=== PATIENT | male | born 1980 | race Caucasian/White ===

== ENCOUNTER 2020-01-15 08:41 | Emergency (ER) | payer OTHER ==
[2020-01-15] MEDS ORDERED: Sodium Chloride 0.9% 1,000 ML IV ONE (09:17)
[2020-01-15] MEDS ORDERED: Sodium Chloride 0.9% 10 ML Syringe FLUSH PRN (09:17)
[2020-01-15] MEDS ORDERED: Sodium Chloride 0.9% 2.5 ML Syringe FLUSH PRN ×2 (09:17)
--- NOTE | 2020-01-15 09:25 | EDM.PDOC ---
ED HPI GENERAL MEDICAL PROBLEM - General Chief Complaint: Abdominal Pain Stated Complaint: ABDOMINAL PAIN Time Seen by Provider: 01/15/20 08:48 - History of Present Illness INITIAL COMMENTS - FREE TEXT/NARRATIVE: History of present illness: [Patient presents with 2 days of left lower quadrant pain that is the lateral it is crampy in nature patient states he is never had this before no no nausea vomiting he is able to pass gas no diarrhea he has not had any genitourinary symptoms no fever movement seems to make it worse being still makes it better. Prior history of a left herniorrhaphy. Patient also has a history of chronic low potassium. ] Review of systems: As per history of present illness and below otherwise all systems reviewed and negative. Past medical history: As per history of present illness and as reviewed below otherwise noncontributory. Surgical history: As per history of present illness and as reviewed below otherwise noncontributory. Social history: No reported history of drug or alcohol abuse. Family history: As per history of present illness and as reviewed below otherwise noncontributory. Physical exam: HEENT: Atraumatic, normocephalic, pupils reactive, negative for conjunctival pallor or scleral icterus, mucous membranes moist, throat clear, neck supple, nontender, trachea midline. Lungs: Clear to auscultation, breath sounds equal bilaterally, chest nontender. Heart: S1S2, regular, negative for clicks, rubs, or JVD. Abdomen: Soft, nondistended, tenderness in the lateral aspect of the left lower quadrant. Negative for masses or hepatosplenomegaly. Negative for costovertebral tenderness. There is no tenderness at McBurney's point and no rebound Pelvis: Stable nontender. Genitourinary: Deferred. Rectal: Deferred. Extremities: Atraumatic, negative for cords or calf pain. Neurovascular unremarkable. Neuro: Awake, alert, oriented. Cranial nerves II through XII unremarkable. Cerebellum unremarkable. Motor and sensory unremarkable throughout. Exam nonfocal. Diagnostics: [] Therapeutics: [] Impression: Abdominal pain Plan: [] Definitive disposition and diagnosis as appropriate pending reevaluation and review of above. LLQ Pain Score (Numeric/FACES): 5 - Related Data Allergies Allergy/AdvReac Type Severity Reaction Status Date / Time amoxicillin Allergy Other Verified 01/15/20 08:53 cefaclor [From Ceclor] Allergy Other Verified 01/15/20 08:53 Penicillins Allergy Other Verified 01/15/20 08:53 Home Meds: Home Meds Naproxen [EC-Naproxen] 500 mg PO Q12HR #20 tablet. 01/15/20 [Rx] Potassium Chloride [Klor-Con] 60 mg PO TID 01/15/20 [History] aMILoride [Midamor] 40 mg PO DAILY 01/15/20 [History] Past Medical History HEENT History: Reports: None Cardiovascular History: Reports: Other (See Below) Other Cardiovascular History: thickened heart burroughs Respiratory History: Reports: None Gastrointestinal History: Reports: None Genitourinary History: Reports: None Musculoskeletal History: Reports: None Neurological History: Reports: None Psychiatric History: Reports: None Endocrine/Metabolic History: Reports: None Hematologic History: Reports: Other (See Below) Other Hematologic History: Bartter's syndrome Immunologic History: Reports: None Oncologic (Cancer) History: Reports: None Dermatologic History: Reports: None - Infectious Disease History Infectious Disease History: Reports: None - Past Surgical History Head Surgeries/Procedures: Reports: None HEENT Surgical History: Reports: None Cardiovascular Surgical History: Reports: None Respiratory Surgical History: Reports: None GI Surgical History: Reports: None Male Surgical History: Reports: None Endocrine Surgical History: Reports: None Neurological Surgical History: Reports: None Musculoskeletal Surgical History: Reports: None Oncologic Surgical History: Reports: None Dermatological Surgical History: Reports: None Social & Family History - Family History Family Medical History: Noncontributory - Tobacco Use Smoking Status *Q: Never Smoker Second Hand Smoke Exposure: No - Caffeine Use Caffeine Use: Reports: None - Alcohol Use Days Per Week of Alcohol Use: 7 Number of Drinks Per Day: 3 Total Drinks Per Week: 21 - Recreational Drug Use Recreational Drug Use: No ED ROS GENERAL - Review of Systems Review Of Systems: See Below ED EXAM, GENERAL - Physical Exam Exam: See Below Course - Vital Signs Text/Narrative:: At 11:40 AM the patient was rechecked he is feeling approximately the same does not want pain medicine. CT was read by radiology as epiploic appendagitis no other acute findings. I will start the patient on naproxen follow-up with primary care return to the ED for worsening symptoms or other concerns. Last Recorded V/S: Last Vital Signs Temp 35.6 C L 01/15/20 08:55 Pulse 77 01/15/20 08:55 Resp 18 01/15/20 08:55 BP 128/89 01/15/20 08:55 Pulse Ox 99 01/15/20 08:55 - Orders/Labs/Meds Orders: Active Orders 24 hr Category Date Time Status Sodium Chloride 0.9% [Saline Flush] Med 01/15/20 09:17 Active 10 ml FLUSH ASDIRECTED PRN Sodium Chloride 0.9% [Saline Flush] Med 01/15/20 09:17 Active 2.5 ml FLUSH ASDIRECTED PRN Sodium Chloride 0.9% [Saline Flush] Med 01/15/20 09:17 Active 2.5 ml FLUSH ASDIRECTED PRN Saline Lock Insert [OM.PC] Stat Oth 01/15/20 09:17 Ordered Medication Orders Sodium Chloride (Saline Flush) 2.5 ml FLUSH ASDIRECTED PRN PRN Reason: Keep Vein Open Sodium Chloride (Saline Flush) 2.5 ml FLUSH ASDIRECTED PRN PRN Reason: Keep Vein Open Sodium Chloride (Saline Flush) 10 ml FLUSH ASDIRECTED PRN PRN Reason: Keep Vein Open Labs: Laboratory Tests 01/15/20 01/15/20 Range/Units 09:14 09:14 WBC 11.23 H (4.0-11.0) K/uL RBC 5.59 (4.50-5.90) M/uL Hgb 18.0 H (13.0-17.0) g/dL Hct 49.1 (38.0-50.0) % MCV 87.8 (80.0-98.0) fL MCH 32.2 H (27.0-32.0) pg MCHC 36.7 (31.0-37.0) g/dL RDW Std Deviation 38.7 (28.0-62.0) fl RDW Coeff of Benson 12 (11.0-15.0) % Plt Count 344 (150-400) K/uL MPV 10.70 (7.40-12.00) fL Neut % (Auto) 72.6 (48.0-80.0) % Lymph % (Auto) 17.8 (16.0-40.0) % [place] % (Auto) 7.9 (0.0-15.0) % Eos % (Auto) 1.3 (0.0-7.0) % Baso % (Auto) 0.4 (0.0-1.5) % Neut # (Auto) 8.2 H (1.4-5.7) K/uL Lymph # (Auto) 2.0 (0.6-2.4) K/uL [place] # (Auto) 0.9 H (0.0-0.8) K/uL Eos # (Auto) 0.2 (0.0-0.7) K/uL Baso # (Auto) 0.0 (0.0-0.1) K/uL Nucleated RBC % 0.0 /100WBC Nucleated RBCs # 0 K/uL Sodium 137 (136-148) mmol/L Potassium 1.7 L* (3.5-5.1) mmol/L Chloride 95 L (98-107) mmol/L Carbon Dioxide 27.5 (21.0-32.0) mmol/L BUN 12 (7.0-18.0) mg/dL Creatinine 1.2 (0.8-1.3) mg/dL Est Cr Clr Drug Dosing 80.75 mL/min Estimated GFR (MDRD) > 60.0 ml/min Glucose 124 H (74-106) mg/dL Calcium 9.1 (8.5-10.1) mg/dL Total Bilirubin 1.1 H (0.2-1.0) mg/dL AST 33 (15-37) IU/L ALT 54 (14-63) IU/L Alkaline Phosphatase 76 (46-116) U/L Total Protein 7.9 (6.4-8.2) g/dL Albumin 4.2 (3.4-5.0) g/dL Globulin 3.7 (2.6-4.0) g/dL Albumin/Globulin Ratio 1.1 (0.9-1.6) Lipase 68 L (73-393) U/L Meds: Medications Generic Name Dose Route Start Last Admin Trade Name Freq PRN Reason Stop Dose Admin Sodium Chloride 2.5 ml 01/15/20 09:17 Saline Flush FLUSH ASDIRECTED PRN Keep Vein Open Sodium Chloride 2.5 ml 01/15/20 09:17 Saline Flush FLUSH ASDIRECTED PRN Keep Vein Open Sodium Chloride 10 ml 01/15/20 09:17 Saline Flush FLUSH ASDIRECTED PRN Keep Vein Open Discontinued Medications Generic Name Dose Route Start Last Admin Trade Name Faustina PRN Reason Stop Dose Admin Sodium Chloride 1,000 mls @ 999 mls/hr 01/15/20 09:17 01/15/20 09:31 Normal Saline IV 01/15/20 10:17 999 mls/hr BOLUS ONE Administration Iopamidol 100 ml 01/15/20 10:38 01/15/20 10:39 Isovue Multipack-370 (76%) IVPUSH 01/15/20 10:39 100 ml ONETIME STA Administration Departure - Departure Time of Disposition: 11:41 Disposition: Home, Self-Care 01 Condition: Good Clinical Impression: Epiploic appendagitis Abdominal pain Qualifiers: Abdominal location: left lower quadrant Qualified Code(s): R10.32 - Left lower quadrant pain - Discharge Information *PRESCRIPTION DRUG MONITORING PROGRAM REVIEWED*: Not Applicable *COPY OF PRESCRIPTION DRUG MONITORING REPORT IN PATIENT LA: Not Applicable Instructions: Abdominal Pain, Adult, [id number] Referrals: PCP,None [Primary Care Provider] - Forms: ED Department Discharge Additional Instructions: The following information is given to patients seen in the emergency department who are being discharged to home. This information is to outline your options for follow-up care. We provide all patients seen in our emergency department with a follow-up referral. The need for follow-up, as well as the timing and circumstances, are variable depending upon the specifics of your emergency department visit. If you don't have a primary care physician on staff, we will provide you with a referral. We always advise you to contact your personal physician following an emergency department visit to inform them of the circumstance of the visit and for follow-up with them and/or the need for any referrals to a consulting specialist. The emergency department will also refer you to a specialist when appropriate. This referral assures that you have the opportunity for follow-up care with a specialist. All of these measure are taken in an effort to provide you with optimal care, which includes your follow-up. Under all circumstances we always encourage you to contact your private physician who remains a resource for coordinating your care. When calling for follow-up care, please make the office aware that this follow-up is from your recent emergency room visit. If for any reason you are refused follow-up, please contact the [facility] Emergency Department at and asked to speak to the emergency department charge nurse. [facility] - Primary Care [address] [place] [address] [facility] [address] [place] [id number] Sepsis Event Note (ED) - Evaluation Sepsis Screening Result: No Definite Risk - Focused Exam Vital Signs: Vital Signs Temp Pulse Resp BP Pulse Ox 01/15/20 08:55 35.6 C L 77 18 128/89 99 - My Orders Last 24 Hours: My Active Orders 01/15/20 09:17 Sodium Chloride 0.9% [Saline Flush] 10 ml FLUSH ASDIRECTED PRN Sodium Chloride 0.9% [Saline Flush] 2.5 ml FLUSH ASDIRECTED PRN Sodium Chloride 0.9% [Saline Flush] 2.5 ml FLUSH ASDIRECTED PRN Saline Lock Insert [OM.PC] Stat - Assessment/Plan Last 24 Hours: My Active Orders 01/15/20 09:17 Sodium Chloride 0.9% [Saline Flush] 10 ml FLUSH ASDIRECTED PRN Sodium Chloride 0.9% [Saline Flush] 2.5 ml FLUSH ASDIRECTED PRN Sodium Chloride 0.9% [Saline Flush] 2.5 ml FLUSH ASDIRECTED PRN Saline Lock Insert [OM.PC] Stat
[2020-01-15 10:14] LABS: BLOOD UREA NITROGEN,BUN 12 mg/dL (7.0-18.0); CARBON DIOXIDE,CO2 27.5 mmol/L (21.0-32.0); CHLORIDE,CL 95 mmol/L (98-107); GLUCOSE RANDOM 124 mg/dL (74-106); LIPASE 68 U/L (73-393); SODIUM,NA 137 mmol/L (136-148)
[2020-01-15 10:16] LABS: POTASSIUM,K 1.7 mmol/L (3.5-5.1)
[2020-01-15] MEDS ORDERED: Iopamidol 755 MG/ML 500 ML Multipack Bottle IVPUSH STA (10:38)
--- NOTE | 2020-01-15 11:28 | CT ---
CT abdomen and pelvis Technique: Multiple axial sections were obtained from above the dome of the diaphragm inferiorly to the pubic symphysis. Intravenous contrast was utilized. No oral contrast has been given. Findings: Visualized lung bases show nothing acute. Liver contains no focal parenchymal abnormality. Spleen appears within normal limits. Adrenal glands show no nodule. Pancreas shows no discrete abnormality. Gallbladder contains no calcified gallstones. Kidneys show symmetric contrast enhancement. No hydronephrosis or discrete mass is seen. Aorta shows no aneurysm. Appendix is seen which is normal. No pelvic mass or adenopathy is seen. Mild inflammatory change is seen off the descending colon close to the descending and sigmoid junction. Findings are felt compatible with so-called epiploic appendagitis. No other inflammatory change is seen. No free fluid is noted. Bone window settings were reviewed. No acute osseous finding is appreciated. Small fat-containing umbilical hernia is noted. Impression: 1. Mild inflammatory change of the descending colon as described above. Findings are felt compatible with epiploic appendagitis. 2. Other findings as noted above which are felt to be incidental. Diagnostic code #3 This report was dictated in MDT
== END 2020-01-15 12:02 | disposition home or self-care (01) ==
LOC: MW.ED 08:41
DX: R10.32 Left lower quadrant pain (principal); Z88.1 Allergy status to other antibiotic agents; Z88.0 Allergy status to penicillin; Z79.899 Other long term (current) drug therapy
CPT/HCPCS: 36415; 74177; 80053; 83690; 85025; 99284; J7030; Q9967

== ENCOUNTER 2021-05-10 17:41 | Observation (INO) | payer OTHER ==
--- NOTE | 2021-05-10 18:01 | EDM.PDOC ---
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 Patient states that he is here for work. He typically receives his care in [place]. He notes that he is supposed to be on oral potassium daily but is admittedly noncompliant with it. He states he can feel when his potassium is getting low because of lower extremity muscle weakness and typically has prescription potassium but did not have any. He did try to get it called in but was told that he needed to come to the hospital for evaluation. Over the last few days he noted worsening lower extremity weakness to the point that he is having difficulty ambulating. He states that when this happens his potassium is typically in the 1-2 range and to "not freak out". He denies any chest pain or shortness of breath. legs Pain Score (Numeric/FACES): 6 - Related Data Allergies Allergy/AdvReac Type Severity Reaction Status Date / Time amoxicillin Allergy Other Verified 05/10/21 17:48 cefaclor [From Ceclor] Allergy Other Verified 05/10/21 17:48 Penicillins Allergy Other Verified 05/10/21 17:48 Home Meds: Home Meds Naproxen [EC-Naproxen] 500 mg PO Q12HR #20 tablet. 01/15/20 [Rx] Potassium Chloride [Klor-Con] 60 mg PO TID 01/15/20 [History] aMILoride [Midamor] 40 mg PO DAILY 01/15/20 [History] Magnesium Oxide [Mag-Oxide Magnesium] 600 mg PO DAILY #90 tablet 05/10/21 [Rx] Potassium Chloride 60 meq PO TID #270 tablet.er 05/10/21 [Rx] aMILoride HCl [Amiloride HCl] 40 mg PO ONETIME #240 tablet 05/10/21 [Rx] Past Medical History HEENT History: Reports: None Cardiovascular History: Reports: Other (See Below) Other Cardiovascular History: thickened heart burroughs Respiratory History: Reports: None Gastrointestinal History: Reports: None Genitourinary History: Reports: None Musculoskeletal History: Reports: None Neurological History: Reports: None Psychiatric History: Reports: None Endocrine/Metabolic History: Reports: None Hematologic History: Reports: Other (See Below) Other Hematologic History: Bartter's syndrome Immunologic History: Reports: None Oncologic (Cancer) History: Reports: None Dermatologic History: Reports: None - Infectious Disease History Infectious Disease History: Reports: None - Past Surgical History Head Surgeries/Procedures: Reports: None HEENT Surgical History: Reports: None Cardiovascular Surgical History: Reports: None Respiratory Surgical History: Reports: None GI Surgical History: Reports: None Male Surgical History: Reports: None Endocrine Surgical History: Reports: None Neurological Surgical History: Reports: None Musculoskeletal Surgical History: Reports: None Oncologic Surgical History: Reports: None Dermatological Surgical History: Reports: None Social & Family History - Family History Family Medical History: No Pertinent Family History - Caffeine Use Caffeine Use: Reports: None - Recreational Drug Use Recreational Drug Use: No ED ROS GENERAL - Review of Systems Review Of Systems: Comprehensive ROS is negative, except as noted in HPI. ED EXAM, GENERAL - Physical Exam Exam: See Below Exam Limited By: No Limitations General Appearance: Alert, WD/WN, No Apparent Distress Ears: Hearing Grossly Normal Throat/Mouth: Normal Voice, No Airway Compromise Head: Atraumatic, Normocephalic Respiratory/Chest: No Respiratory Distress, Lungs Clear, Normal Breath Sounds, No Accessory Muscle Use Cardiovascular: Normal Peripheral Pulses, Regular Rate, Rhythm Extremities: Normal Inspection, Other (symmetric LE muscle weakness) Neurological: Alert, Normal Cognition Psychiatric: Normal Affect, Normal Mood Skin Exam: Warm, Dry, Intact, Normal Color #1 Interpretation EKG Date: 05/10/21 Time: 17:47 Rhythm: NSR Rate (Beats/Min): 94 [place]: Normal P-Wave: Present QRS: Normal ST-T: Normal QT: Normal UT/PQ Interval: 397 EKG Interpretation Comments: non-ischemic Course - Re-Assessments/Exams Free Text/Narrative Re-Assessment/Exam: 05/10/21 18:56 Potassium is low at 1.9. Magnesium is also low at 1.3. 40 mEq potassium IV ordered. 40mEq PO. 2 g magnesium ordered. 05/10/21 19:18 Patient care transitioned to Dr. Johnson pending reassessment after medications. I did speak with patient about potential admission for hypokalemia but he declines. I did provide him with outpatient Rx for his medications as prescribed by his respiratory therapy assistant in [place]. 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 Patient has been noncompliant with his potassium. Patient reports that he is from [place] and his doctor would not call in prescription for potassium secondary to symptoms and told to come to the ER for evaluation. Here in the ER his potassium level is 1.9 and his magnesium level is 1.6. Patient was given 2 g of mag sulfate followed by 40 mEq of potassium p.o., 40 equivalents of IV potassium chloride, and ultimately followed by an additional 40 mg of potassium p.o. Patient was reevaluated after receiving 120 mill equivalents of potassium and is still feeling too weak to walk. Patient reports he has no weakness in his upper extremities however his lower extremities are extremely weak and he was unable to stand without assistance. I have discussed the case with Dr. Leonard who agrees with the plan to admit for continued supplementation of magnesium and potassium until his strength is back. Reassessment at the time of disposition demonstrates that the patient is in no acute distress. The patient has remained stable throughout the entire ED visit and is without objective evidence for acute process requiring urgent intervention or hospitalization. The patient is stable for discharge, counseling is provided as documented above, discussed symptomatic treatment and specific conditions for return. I have spoken with the patient/caregiver and discussed todays findings, in addition to providing specific details for the plan of care. Questions are answered and there is agreement with the plan. ED ROS GENERAL - Review of Systems Review Of Systems: See Below ED EXAM, GENERAL - Physical Exam Exam: See Below Course - Vital Signs Last Recorded V/S: Last Vital Signs Temp 97.2 F 05/10/21 17:45 Pulse 98 05/10/21 17:45 Resp 16 05/10/21 19:51 BP 145/86 H 05/10/21 17:45 Pulse Ox 98 05/10/21 19:51 - Orders/Labs/Meds Orders: Active Orders 24 hr Category Date Time Status CORONAVIRUS COVID-19 STEVE [MOLEC] Stat Lab 05/11/21 00:39 Ordered POTASSIUM,K [CHEM] Stat Lab 05/11/21 00:40 Received Magnesium Sulfate/Water [Magnesium Sulfate in Water 2 Med 05/11/21 00:45 Ordered GM/50 ML] 2 gm Premix Bag 1 bag IV ONETIME Sodium Chloride 0.9% [Normal Saline] 1,000 ml Med 05/10/21 19:15 Active IV ASDIRECTED Saline Lock Insert [OM.PC] Stat Oth 05/10/21 17:57 Ordered Medication Orders Sodium Chloride (Normal Saline) 1,000 mls @ 125 mls/hr IV ASDIRECTED [facility] Last Admin: 05/10/21 19:20 Dose: 125 mls/hr Documented by: DEBORA Magnesium Sulfate 2 gm/ Premix 50 mls @ 12.5 mls/hr IV ONETIME ONE Stop: 05/11/21 04:44 Labs: Laboratory Tests 05/10/21 05/10/21 Range/Units 18:06 18:06 WBC 15.48 H (4.0-11.0) K/uL RBC 4.96 (4.50-5.90) M/uL Hgb 15.6 (13.0-17.0) g/dL Hct 41.2 (38.0-50.0) % MCV 83.1 (80.0-98.0) fL MCH 31.5 (27.0-32.0) pg MCHC 37.9 H (31.0-37.0) g/dL RDW Std Deviation 39.7 (28.0-62.0) fl RDW Coeff of Benson 13 (11.0-15.0) % Plt Count 423 H (150-400) K/uL MPV 10.70 (7.40-12.00) fL Neut % (Auto) 75.1 (48.0-80.0) % Lymph % (Auto) 14.1 L (16.0-40.0) % [place] % (Auto) 8.5 (0.0-15.0) % Eos % (Auto) 2.1 (0.0-7.0) % Baso % (Auto) 0.2 (0.0-1.5) % Neut # (Auto) 11.6 H (1.4-5.7) K/uL Lymph # (Auto) 2.2 (0.6-2.4) K/uL [place] # (Auto) 1.3 H (0.0-0.8) K/uL Eos # (Auto) 0.3 (0.0-0.7) K/uL Baso # (Auto) 0.0 (0.0-0.1) K/uL Nucleated RBC % 0.0 /100WBC Nucleated RBCs # 0 K/uL Sodium 139 (136-148) mmol/L Potassium 1.9 L* (3.5-5.1) mmol/L Chloride 99 (98-107) mmol/L Carbon Dioxide 21.6 (21.0-32.0) mmol/L BUN 16 (7.0-18.0) mg/dL Creatinine 1.1 (0.8-1.3) mg/dL Est Cr Clr Drug Dosing 86.36 mL/min Estimated GFR (MDRD) > 60.0 ml/min Glucose 107 H (74-106) mg/dL Calcium 8.0 L (8.5-10.1) mg/dL Magnesium 1.3 L (1.8-2.4) mg/dL Total Bilirubin 1.0 (0.2-1.0) mg/dL AST 27 (15-37) IU/L ALT 31 (14-63) IU/L Alkaline Phosphatase 67 (46-116) U/L Total Protein 6.9 (6.4-8.2) g/dL Albumin 3.6 (3.4-5.0) g/dL Globulin 3.3 (2.6-4.0) g/dL Albumin/Globulin Ratio 1.1 (0.9-1.6) Meds: Medications Generic Name Dose Route Start Last Admin Trade Name Freq PRN Reason Stop Dose Admin Sodium Chloride 1,000 mls @ 125 mls/hr 05/10/21 19:15 05/10/21 19:20 Normal Saline IV 125 mls/hr ASDIRECTED MATTHEW Administration Magnesium Sulfate 2 gm/ Premix 50 mls @ 12.5 mls/hr 05/11/21 00:45 IV 05/11/21 04:44 ONETIME ONE Discontinued Medications Generic Name Dose Route Start Last Admin Trade Name Freq PRN Reason Stop Dose Admin Potassium Chloride 20 meq/ 50 mls @ 25 mls/hr 05/10/21 18:08 05/10/21 19:00 Premix IV 05/10/21 20:07 Not Given ONETIME ONE Potassium Chloride 40 meq/ 100 mls @ 25 mls/hr 05/10/21 18:56 05/10/21 19:30 Premix IV 05/10/21 22:55 25 mls/hr ONETIME ONE Administration Magnesium Sulfate 2 gm/ Premix 50 mls @ 50 mls/hr 05/10/21 18:56 05/10/21 19:15 IV 05/10/21 19:55 50 mls/hr ONETIME ONE Administration Potassium Chloride 40 meq 05/10/21 19:00 05/10/21 19:14 Potassium Chloride 10% 20 Meq/15 Ml Soln 30 Ml Ud Cup PO 05/10/21 19:01 40 meq ONETIME ONE Administration Potassium Chloride 40 meq 05/10/21 22:45 05/10/21 23:08 Potassium Chloride 20 Meq Tab.Er PO 05/10/21 22:46 40 meq ONETIME ONE Administration Spironolactone 50 mg 05/10/21 19:17 05/10/21 19:29 Spironolactone 25 Mg Tab PO 05/10/21 19:18 50 mg ONETIME ONE Administration Departure - Departure Time of Disposition: 00:49 Condition: Good Sepsis Event Note (ED) - Focused Exam Vital Signs: Vital Signs Temp Pulse Resp BP Pulse Ox 05/10/21 19:51 16 98 05/10/21 17:45 97.2 F 98 18 145/86 H 98 - My Orders Last 24 Hours: My Active Orders 05/11/21 00:39 CORONAVIRUS COVID-19 STEVE [MOLEC] Stat 05/11/21 00:40 POTASSIUM,K [CHEM] Stat 05/11/21 00:45 Magnesium Sulfate/Water [Magnesium Sulfate in Water 2 GM/50 ML] 2 gm Premix Bag 1 bag IV ONETIME - Assessment/Plan Last 24 Hours: My Active Orders 05/11/21 00:39 CORONAVIRUS COVID-19 STEVE [MOLEC] Stat 05/11/21 00:40 POTASSIUM,K [CHEM] Stat 05/11/21 00:45 Magnesium Sulfate/Water [Magnesium Sulfate in Water 2 GM/50 ML] 2 gm Premix Bag 1 bag IV ONETIME
[2021-05-10] MEDS ORDERED: Potassium Chloride Riders 20 MEQ in Premix Bag 1 BAG IV ONE (18:08)
[2021-05-10 18:44] LABS: BLOOD UREA NITROGEN,BUN 16 mg/dL (7.0-18.0); CARBON DIOXIDE,CO2 21.6 mmol/L (21.0-32.0); CHLORIDE,CL 99 mmol/L (98-107); GLUCOSE RANDOM 107 mg/dL (74-106); SODIUM,NA 139 mmol/L (136-148)
[2021-05-10 18:56] LABS: POTASSIUM,K 1.9 mmol/L (3.5-5.1)
[2021-05-10] MEDS ORDERED: Magnesium Sulfate/Water 2 GM in Premix Bag 1 BAG IV ONE (18:56)
[2021-05-10] MEDS ORDERED: Potassium Chloride Riders 40 MEQ in Premix Bag 1 BAG IV ONE (18:56)
[2021-05-10] MEDS ORDERED: Potassium Chloride 10% 20 MEQ/15 ML Soln 30 ML UD Cup PO ONE (19:00)
[2021-05-10] MEDS ORDERED: Spironolactone 25 MG Tab PO ONE (19:17)
[2021-05-10] MEDS: Sodium Chloride 0.9% 1,000 ML IV SCH (19:20)
[2021-05-10] MEDS ORDERED: Potassium Chloride 20 MEQ Tab.ER PO ONE (22:45)
[2021-05-11] MEDS ORDERED: Magnesium Sulfate/Water 2 GM in Premix Bag 1 BAG IV ONE ×2 (00:45→07:00)
[2021-05-11] MEDS ORDERED: Albuterol/Ipratropium 3.0-0.5 MG/3 ML Neb Soln NEB PRN (03:08)
[2021-05-11] MEDS ORDERED: Ondansetron 4 MG/2 ML SDV IVPUSH PRN (03:09)
[2021-05-11] MEDS ORDERED: Potassium Chloride 20 MEQ Tab.ER PO ONE ×2 (03:18→08:31)
[2021-05-11] MEDS ORDERED: Potassium Chloride Riders 40 MEQ in Premix Bag 1 BAG IV ONE ×4 (03:50→18:44)
[2021-05-11 06:28] LABS: BLOOD UREA NITROGEN,BUN 14 mg/dL (7.0-18.0); CARBON DIOXIDE,CO2 26.1 mmol/L (21.0-32.0); CHLORIDE,CL 100 mmol/L (98-107); GLUCOSE RANDOM 113 mg/dL (74-106); SODIUM,NA 140 mmol/L (136-148)
[2021-05-11 06:31] LABS: POTASSIUM,K 1.8 mmol/L (3.5-5.1)
--- NOTE | 2021-05-11 08:14 | PCM.HP.2 ---
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 Patient condition is managed and followed in [place] by his provider. Patient was diagnosed in his mid to late 20s. Patient has been in [place] since January. Patient's medications include potassium chloride 60 mEq TID and amiloride 40 mg daily. Patient has been noncompliant with his medications for the last 1 year. Patient has had episodes of hyperkalemia in the past states he begins to experience muscle weakness in his legs which he has had for the past few days. He did call his provider for prescription but was told to ER for evaluation. Patient states his lower extremity weakness has worsened over the past few days making it difficult to ambulate. Patient understands that the symptoms start when his potassium becomes between 1-2. Patient denies chest pain, palpitations, irregular heartbeat, shortness of breath, dyspnea on exertion, headaches, dizziness, loss of consciousness. Patient had COVID last month, did not require hospitalization. Patient is not vaccinated for Covid. ED course: Patient had lower extremity muscle weakness bilaterally. Potassium 1.9. Magnesium 1.3. Patient received potassium chloride 40 mEq IV. Potassium chloride 40 mEq p.o. 2 g of magnesium. This was followed by another 40 mEq IV potassium. Patient continued to feel weak and had difficulty with ambulation. Temperature 97.2. Pulse 98. RR 16. BP 145/86. 98% on room air. WBC 15.48. Hgb 15.6. Platelet 423. Sodium 139. Potassium 1.9. Chloride 99. Bicarb 21.6. BUN 16. Creatinine 1.1. Glucose 107. Calcium 8.0. Magnesium 1.3. AST 27. ALT 31. Alk phos 67. EKG: Normal sinus rhythm. Normal axis. No STT abnormalities. 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 Medications: Potassium chloride 60 mEq TID. Amiloride 40 mg daily. Allergies: Amoxicillin, penicillin, cefaclor. Social history: Patient chews 1 tin of tobacco daily. Denies smoking. Patient states he has not had alcohol for the last 1.5 months. Denies illicit drug use. Patient is and has 2 children who live at home in [place]. CODE STATUS: Full code. legs Pain Score (Numeric/FACES): 6 - Related Data Allergies/Adverse Reactions: Allergies Allergy/AdvReac Type Severity Reaction Status Date / Time amoxicillin Allergy Other Verified 05/11/21 02:23 cefaclor [From Ceclor] Allergy Other Verified 05/11/21 02:23 Penicillins Allergy Other Verified 05/11/21 02:23 Home Medications: Home Meds Naproxen [EC-Naproxen] 500 mg PO Q12HR #20 tablet. 01/15/20 [Rx] Potassium Chloride [Klor-Con] 60 mg PO TID 01/15/20 [History] aMILoride [Midamor] 40 mg PO DAILY 01/15/20 [History] Magnesium Oxide [Mag-Oxide Magnesium] 600 mg PO DAILY #90 tablet 05/10/21 [Rx] Potassium Chloride 60 meq PO TID #270 tablet.er 05/10/21 [Rx] aMILoride HCl [Amiloride HCl] 40 mg PO ONETIME #240 tablet 05/10/21 [Rx] Past Medical History HEENT History: Reports: None Cardiovascular History: Reports: Cardiomyopathy, Other (See Below) Other Cardiovascular History: thickened heart burroughs Respiratory History: Reports: None Gastrointestinal History: Reports: None Genitourinary History: Reports: None Musculoskeletal History: Reports: None Neurological History: Reports: None Psychiatric History: Reports: None Endocrine/Metabolic History: Reports: None Hematologic History: Reports: Other (See Below) Other Hematologic History: Bartter's syndrome Immunologic History: Reports: None Oncologic (Cancer) History: Reports: None Dermatologic History: Reports: None - Infectious Disease History Infectious Disease History: Reports: None - Past Surgical History Head Surgeries/Procedures: Reports: None HEENT Surgical History: Reports: None Cardiovascular Surgical History: Reports: None Respiratory Surgical History: Reports: None GI Surgical History: Reports: None Male Surgical History: Reports: None Endocrine Surgical History: Reports: None Neurological Surgical History: Reports: None Musculoskeletal Surgical History: Reports: None Oncologic Surgical History: Reports: None Dermatological Surgical History: Reports: None Social & Family History - Family History Family Medical History: No Pertinent Family History - Tobacco Use Tobacco Use Status *Q: Former Tobacco User Used Tobacco, but Quit: Yes Month/Year Tobacco Last Used: 2003 Second Hand Smoke Exposure: No - Caffeine Use Caffeine Use: Reports: Tea - Recreational Drug Use Recreational Drug Use: No H&P Review of Systems - Review of Systems: Review Of Systems: See Below General: Reports: Fatigue. Denies: Fever HEENT: Denies: Visual Changes Pulmonary: Denies: Shortness of Breath, Wheezing, Pleuritic Chest Pain, Cough Cardiovascular: Denies: Chest Pain, Palpitations, Dyspnea on Exertion, Orthopnea, PND, Edema, Lightheadedness, Syncope Gastrointestinal: Denies: Abdominal Pain, Anorexia, Constipation, Diarrhea, Nausea, Vomiting Genitourinary: Denies: Dysuria, Frequency, Burning Musculoskeletal: Reports: Other (Generalized weakness. Lower extremity weakness.). Denies: Neck Pain, Shoulder Pain Skin: Denies: Rash Psychiatric: Denies: Confusion Neurological: Denies: Confusion, Dizziness, Headache, Numbness, Paresthesia Exam - Exam Exam: See Below - Vital Signs Vital Signs: Last Vital Signs Temp 97.6 F 05/11/21 07:54 Pulse 68 05/11/21 07:54 Resp 16 05/11/21 07:54 BP 106/60 05/11/21 07:54 Pulse Ox 97 05/11/21 07:54 Weight: 89.857 kg - Exam General: Alert, Oriented, Cooperative HEENT: Conjunctiva Clear, EACs Clear, EOMI Neck: Supple, Trachea Midline Lungs: Clear to Auscultation, Normal Respiratory Effort Cardiovascular: Regular Rate, Regular Rhythm GI/Abdominal Exam: Normal Bowel Sounds, Soft, Non-Tender Back Exam: Normal Inspection Extremities: Normal Inspection, Non-Tender, No Pedal Edema, Other (Decreased hand manager wound care strength. Knee extension 2/5 bilaterally. Hip flexion 2/5 bilaterally. Plantar flexion 2/5 bilaterally.). No: Teresa's Sign Peripheral Pulses: 2+: Dorsalis Pedis (L), Dorsalis Pedis (R) Skin: Warm, Dry, Intact Neurological: Cranial Nerves Intact, Reflexes Equal Bilateral, Abnormal Gait (Difficulty ambulating.) Neuro Extensive - Mental Status: Alert, Oriented x3 DTR: 2+: Patella (L), Patella (R) - Patient Data Lab Results Last 24 hrs: Laboratory Results - last 24 hr 05/10/21 05/10/21 05/11/21 Range/Units 18:06 18:06 00:40 WBC 15.48 H (4.0-11.0) K/uL RBC 4.96 (4.50-5.90) M/uL Hgb 15.6 (13.0-17.0) g/dL Hct 41.2 (38.0-50.0) % MCV 83.1 (80.0-98.0) fL MCH 31.5 (27.0-32.0) pg MCHC 37.9 H (31.0-37.0) g/dL RDW Std Deviation 39.7 (28.0-62.0) fl RDW Coeff of Benson 13 (11.0-15.0) % Plt Count 423 H (150-400) K/uL MPV 10.70 (7.40-12.00) fL Neut % (Auto) 75.1 (48.0-80.0) % Lymph % (Auto) 14.1 L (16.0-40.0) % [place] % (Auto) 8.5 (0.0-15.0) % Eos % (Auto) 2.1 (0.0-7.0) % Baso % (Auto) 0.2 (0.0-1.5) % Neut # (Auto) 11.6 H (1.4-5.7) K/uL Lymph # (Auto) 2.2 (0.6-2.4) K/uL [place] # (Auto) 1.3 H (0.0-0.8) K/uL Eos # (Auto) 0.3 (0.0-0.7) K/uL Baso # (Auto) 0.0 (0.0-0.1) K/uL Nucleated RBC % 0.0 /100WBC Nucleated RBCs # 0 K/uL Sodium 139 (136-148) mmol/L Potassium 1.9 L* 1.8 L* (3.5-5.1) mmol/L Chloride 99 (98-107) mmol/L Carbon Dioxide 21.6 (21.0-32.0) mmol/L BUN 16 (7.0-18.0) mg/dL Creatinine 1.1 (0.8-1.3) mg/dL Est Cr Clr Drug Dosing 86.36 mL/min Estimated GFR (MDRD) > 60.0 ml/min Glucose 107 H (74-106) mg/dL Calcium 8.0 L (8.5-10.1) mg/dL Magnesium 1.3 L (1.8-2.4) mg/dL Total Bilirubin 1.0 (0.2-1.0) mg/dL AST 27 (15-37) IU/L ALT 31 (14-63) IU/L Alkaline Phosphatase 67 (46-116) U/L Total Protein 6.9 (6.4-8.2) g/dL Albumin 3.6 (3.4-5.0) g/dL Globulin 3.3 (2.6-4.0) g/dL Albumin/Globulin Ratio 1.1 (0.9-1.6) 05/11/21 05/11/21 05/11/21 Range/Units 05:50 05:50 05:50 WBC 13.81 H (4.0-11.0) K/uL RBC 4.87 (4.50-5.90) M/uL Hgb 15.2 (13.0-17.0) g/dL Hct 40.7 (38.0-50.0) % MCV 83.6 (80.0-98.0) fL MCH 31.2 (27.0-32.0) pg MCHC 37.3 H (31.0-37.0) g/dL RDW Std Deviation 40.2 (28.0-62.0) fl RDW Coeff of Benson 13 (11.0-15.0) % Plt Count 426 H (150-400) K/uL MPV 10.70 (7.40-12.00) fL Neut % (Auto) 74.4 (48.0-80.0) % Lymph % (Auto) 14.9 L (16.0-40.0) % [place] % (Auto) 7.2 (0.0-15.0) % Eos % (Auto) 3.3 (0.0-7.0) % Baso % (Auto) 0.2 (0.0-1.5) % Neut # (Auto) 10.3 H (1.4-5.7) K/uL Lymph # (Auto) 2.1 (0.6-2.4) K/uL [place] # (Auto) 1.0 H (0.0-0.8) K/uL Eos # (Auto) 0.5 (0.0-0.7) K/uL Baso # (Auto) 0.0 (0.0-0.1) K/uL Nucleated RBC % 0.0 /100WBC Nucleated RBCs # 0 K/uL Sodium 140 (136-148) mmol/L Potassium 1.8 L* (3.5-5.1) mmol/L Chloride 100 (98-107) mmol/L Carbon Dioxide 26.1 (21.0-32.0) mmol/L BUN 14 (7.0-18.0) mg/dL Creatinine 1.0 (0.8-1.3) mg/dL Est Cr Clr Drug Dosing 95.00 mL/min Estimated GFR (MDRD) > 60.0 ml/min Glucose 113 H (74-106) mg/dL Calcium 8.1 L (8.5-10.1) mg/dL Magnesium 2.8 H (1.8-2.4) mg/dL Total Bilirubin 1.1 H (0.2-1.0) mg/dL AST 24 (15-37) IU/L ALT 22 (14-63) IU/L Alkaline Phosphatase 62 (46-116) U/L Total Protein 6.4 (6.4-8.2) g/dL Albumin 3.3 L (3.4-5.0) g/dL Globulin 3.1 (2.6-4.0) g/dL Albumin/Globulin Ratio 1.1 (0.9-1.6) Result Diagrams: 05/11/21 05:50 05/11/21 05:50 Sepsis Event Note - Evaluation Sepsis Screening Result: No Definite Risk - Focused Exam Vital Signs: Vital Signs Temp Pulse Resp BP BP Pulse Ox Pulse Ox 05/11/21 07:54 97.6 F 68 16 106/60 97 05/11/21 04:00 97.2 F 67 17 108/62 96 05/11/21 03:23 99 05/11/21 03:22 99 05/11/21 03:08 99 05/11/21 02:28 97.2 F 75 16 115/66 99 05/11/21 00:44 97.0 F 73 16 114/72 97 - Problem List (1) Hypokalemia SNOMED Code(s): 08893324 ICD Code: E87.6 - HYPOKALEMIA Status: Acute Current Visit: Yes (2) Hypokalemic periodic paralysis SNOMED Code(s): 27378283 ICD Code: G72.3 - PERIODIC PARALYSIS Status: Acute Current Visit: Yes Problem List Initiated/Reviewed/Updated: Yes Orders Last 24hrs: Active Orders 24 hr Category Date Time Status Patient Status [ADT] Routine ADT 05/11/21 00:51 Active Ambulate [RC] ASDIRECTED Care 05/11/21 03:24 Active Antiembolic Devices [RC] PER UNIT ROUTINE Care 05/11/21 03:24 Active Oxygen Therapy [RC] PRN Care 05/11/21 03:22 Active Pulse Oximetry [RC] ASDIRECTED Care 05/11/21 03:23 Active RT Aerosol Therapy [RC] ASDIRECTED Care 05/11/21 03:08 Active Telemetry Monitoring [Cardiac Monitoring] [RC] Q8H Care 05/11/21 02:00 Active Regular Diet [DIET] Diet 05/11/21 Breakfast Active CORONAVIRUS COVID-19 STEVE [MOLEC] Stat Lab 05/11/21 00:39 Ordered MAGNESIUM [CHEM] Routine Lab 05/11/21 16:00 Ordered POTASSIUM,K [CHEM] Routine Lab 05/11/21 16:00 Ordered Albuterol/Ipratropium [DuoNeb 3.0-0.5 MG/3 ML] Med 05/11/21 03:08 Active 3 ml NEB Q4HRRT PRN Magnesium Sulfate/Water [Magnesium Sulfate in Water 2 Med 05/11/21 07:00 Active GM/50 ML] 2 gm Premix Bag 1 bag IV ONETIME Ondansetron [Zofran] Med 05/11/21 03:09 Active 4 mg IVPUSH Q4H PRN Potassium Chloride Riders [KCL in Water 40 MEQ/100 ML] Med 05/11/21 12:00 Active 40 meq Premix Bag 1 bag IV ONETIME Sodium Chloride 0.9% [Normal Saline] 1,000 ml Med 05/10/21 19:15 Active IV ASDIRECTED Saline Lock Insert [OM.PC] Stat Oth 05/10/21 17:57 Ordered Sequential Compression Device [OM.PC] Routine Oth 05/11/21 03:23 Ordered Medication Orders Albuterol/Ipratropium (Albuterol/Ipratropium 3.0-0.5 Mg/3 Ml Neb Soln) 3 ml NEB Q4HRRT PRN PRN Reason: Shortness of Breath Sodium Chloride (Normal Saline) 1,000 mls @ 125 mls/hr IV ASDIRECTED MATTHEW Last Admin: 05/10/21 19:20 Dose: 125 mls/hr Documented by: DEBORA Magnesium Sulfate 2 gm/ Premix 50 mls @ 12.5 mls/hr IV ONETIME ONE Stop: 05/11/21 10:59 Potassium Chloride 40 meq/ (Premix) 100 mls @ 25 mls/hr IV ONETIME ONE Stop: 05/11/21 15:59 Ondansetron HCl (Ondansetron 4 Mg/2 Ml Sdv) 4 mg IVPUSH Q4H PRN PRN Reason: Nausea Assessment/Plan Comment:: 41-year-old male admitted for acute on chronic hypokalemia but generalized muscle weakness. -Replete potassium, IV and PO. -Replete magnesium. -Physical therapy for strength and ambulation. -BMP and magnesium level. CODE STATUS: Full code <Nicole Powell - Last Filed: 05/11/21 14:28> H&P History of Present Illness - General Admit Problem/Dx: Admission Diagnosis/Problem Admission Diagnosis/Problem Hypokalemia Exam - Vital Signs Vital Signs: Last Vital Signs Temp 35.9 C L 05/11/21 12:00 Pulse 78 05/11/21 12:00 Resp 16 05/11/21 12:00 BP 110/59 L 05/11/21 12:00 Pulse Ox 97 05/11/21 12:00 - Patient Data Lab Results Last 24 hrs: Laboratory Results - last 24 hr 05/10/21 05/10/21 05/11/21 Range/Units 18:06 18:06 00:40 WBC 15.48 H (4.0-11.0) K/uL RBC 4.96 (4.50-5.90) M/uL Hgb 15.6 (13.0-17.0) g/dL Hct 41.2 (38.0-50.0) % MCV 83.1 (80.0-98.0) fL MCH 31.5 (27.0-32.0) pg MCHC 37.9 H (31.0-37.0) g/dL RDW Std Deviation 39.7 (28.0-62.0) fl RDW Coeff of Benson 13 (11.0-15.0) % Plt Count 423 H (150-400) K/uL MPV 10.70 (7.40-12.00) fL Neut % (Auto) 75.1 (48.0-80.0) % Lymph % (Auto) 14.1 L (16.0-40.0) % [place] % (Auto) 8.5 (0.0-15.0) % Eos % (Auto) 2.1 (0.0-7.0) % Baso % (Auto) 0.2 (0.0-1.5) % Neut # (Auto) 11.6 H (1.4-5.7) K/uL Lymph # (Auto) 2.2 (0.6-2.4) K/uL [place] # (Auto) 1.3 H (0.0-0.8) K/uL Eos # (Auto) 0.3 (0.0-0.7) K/uL Baso # (Auto) 0.0 (0.0-0.1) K/uL Nucleated RBC % 0.0 /100WBC Nucleated RBCs # 0 K/uL Sodium 139 (136-148) mmol/L Potassium 1.9 L* 1.8 L* (3.5-5.1) mmol/L Chloride 99 (98-107) mmol/L Carbon Dioxide 21.6 (21.0-32.0) mmol/L BUN 16 (7.0-18.0) mg/dL Creatinine 1.1 (0.8-1.3) mg/dL Est Cr Clr Drug Dosing 86.36 mL/min Estimated GFR (MDRD) > 60.0 ml/min Glucose 107 H (74-106) mg/dL Calcium 8.0 L (8.5-10.1) mg/dL Magnesium 1.3 L (1.8-2.4) mg/dL Total Bilirubin 1.0 (0.2-1.0) mg/dL AST 27 (15-37) IU/L ALT 31 (14-63) IU/L Alkaline Phosphatase 67 (46-116) U/L Total Protein 6.9 (6.4-8.2) g/dL Albumin 3.6 (3.4-5.0) g/dL Globulin 3.3 (2.6-4.0) g/dL Albumin/Globulin Ratio 1.1 (0.9-1.6) 05/11/21 05/11/21 05/11/21 Range/Units 05:50 05:50 05:50 WBC 13.81 H (4.0-11.0) K/uL RBC 4.87 (4.50-5.90) M/uL Hgb 15.2 (13.0-17.0) g/dL Hct 40.7 (38.0-50.0) % MCV 83.6 (80.0-98.0) fL MCH 31.2 (27.0-32.0) pg MCHC 37.3 H (31.0-37.0) g/dL RDW Std Deviation 40.2 (28.0-62.0) fl RDW Coeff of Benson 13 (11.0-15.0) % Plt Count 426 H (150-400) K/uL MPV 10.70 (7.40-12.00) fL Neut % (Auto) 74.4 (48.0-80.0) % Lymph % (Auto) 14.9 L (16.0-40.0) % [place] % (Auto) 7.2 (0.0-15.0) % Eos % (Auto) 3.3 (0.0-7.0) % Baso % (Auto) 0.2 (0.0-1.5) % Neut # (Auto) 10.3 H (1.4-5.7) K/uL Lymph # (Auto) 2.1 (0.6-2.4) K/uL [place] # (Auto) 1.0 H (0.0-0.8) K/uL Eos # (Auto) 0.5 (0.0-0.7) K/uL Baso # (Auto) 0.0 (0.0-0.1) K/uL Nucleated RBC % 0.0 /100WBC Nucleated RBCs # 0 K/uL Sodium 140 (136-148) mmol/L Potassium 1.8 L* (3.5-5.1) mmol/L Chloride 100 (98-107) mmol/L Carbon Dioxide 26.1 (21.0-32.0) mmol/L BUN 14 (7.0-18.0) mg/dL Creatinine 1.0 (0.8-1.3) mg/dL Est Cr Clr Drug Dosing 95.00 mL/min Estimated GFR (MDRD) > 60.0 ml/min Glucose 113 H (74-106) mg/dL Calcium 8.1 L (8.5-10.1) mg/dL Magnesium 2.8 H (1.8-2.4) mg/dL Total Bilirubin 1.1 H (0.2-1.0) mg/dL AST 24 (15-37) IU/L ALT 22 (14-63) IU/L Alkaline Phosphatase 62 (46-116) U/L Total Protein 6.4 (6.4-8.2) g/dL Albumin 3.3 L (3.4-5.0) g/dL Globulin 3.1 (2.6-4.0) g/dL Albumin/Globulin Ratio 1.1 (0.9-1.6) Result Diagrams: 05/11/21 05:50 05/11/21 05:50 Sepsis Event Note - Focused Exam Vital Signs: Vital Signs Temp Pulse Resp BP BP Pulse Ox Pulse Ox 05/11/21 12:00 35.9 C L 78 16 110/59 L 97 05/11/21 07:54 36.4 C 68 16 106/60 97 05/11/21 04:00 36.2 C 67 17 108/62 96 05/11/21 03:23 99 05/11/21 03:22 99 05/11/21 03:08 99 Orders Last 24hrs: Active Orders 24 hr Category Date Time Status Patient Status [ADT] Routine ADT 05/11/21 00:51 Active Ambulate [RC] ASDIRECTED Care 05/11/21 03:24 Active Antiembolic Devices [RC] PER UNIT ROUTINE Care 05/11/21 03:24 Active Oxygen Therapy [RC] PRN Care 05/11/21 03:22 Active Pulse Oximetry [RC] ASDIRECTED Care 05/11/21 03:23 Active RT Aerosol Therapy [RC] ASDIRECTED Care 05/11/21 03:08 Active Telemetry Monitoring [Cardiac Monitoring] [RC] Q8H Care 05/11/21 02:00 Active Consult to Physical Therapy [PT Evaluation and Cons 05/11/21 09:37 Active Treatment] [CONS] Routine Regular Diet [DIET] Diet 05/11/21 Breakfast Active MAGNESIUM [CHEM] Routine Lab 05/11/21 18:00 Ordered MAGNESIUM [CHEM] Routine Lab 05/12/21 05:11 Ordered POTASSIUM,K [CHEM] Routine Lab 05/11/21 18:00 Ordered POTASSIUM,K [CHEM] Routine Lab 05/12/21 05:11 Ordered Albuterol/Ipratropium [DuoNeb 3.0-0.5 MG/3 ML] Med 05/11/21 03:08 Active 3 ml NEB Q4HRRT PRN Ondansetron [Zofran] Med 05/11/21 03:09 Active 4 mg IVPUSH Q4H PRN Patient's Own Medication [Ptom] Med 05/12/21 09:00 Active 8 each PO DAILY Potassium Chloride Riders [KCL in Water 40 MEQ/100 ML] Med 05/11/21 12:00 Active 40 meq Premix Bag 1 bag IV ONETIME Potassium Chloride [Klor-Con M20] Med 05/11/21 14:00 Active 60 meq PO TID Sodium Chloride 0.9% [Normal Saline] 1,000 ml Med 05/10/21 19:15 Active IV ASDIRECTED Saline Lock Insert [OM.PC] Stat Oth 05/10/21 17:57 Ordered Sequential Compression Device [OM.PC] Routine Oth 05/11/21 03:23 Ordered Code Status [Resuscitation Status] Routine Resus Stat 05/11/21 10:27 Ordered Medication Orders Albuterol/Ipratropium (Albuterol/Ipratropium 3.0-0.5 Mg/3 Ml Neb Soln) 3 ml NEB Q4HRRT PRN PRN Reason: Shortness of Breath Sodium Chloride (Normal Saline) 1,000 mls @ 125 mls/hr IV ASDIRECTED MATTHEW Last Admin: 05/10/21 19:20 Dose: 125 mls/hr Documented by: DEBORA Potassium Chloride 40 meq/ (Premix) 100 mls @ 25 mls/hr IV ONETIME ONE Stop: 05/11/21 15:59 Last Admin: 05/11/21 12:05 Dose: 25 mls/hr Documented by: MANUELA Ondansetron HCl (Ondansetron 4 Mg/2 Ml Sdv) 4 mg IVPUSH Q4H PRN PRN Reason: Nausea Amiloride 5 Mg (Tablet) 8 each PO DAILY MATTHEW Potassium Chloride (Potassium Chloride 20 Meq Tab.Er) 60 meq PO TID MATTHEW Last Admin: 05/11/21 13:46 Dose: 60 meq Documented by: MANUELA Assessment/Plan Comment:: I performed a history and physical exam of the patient and discussed management with resident. I have reviewed the residents note and agree with documented findings and plan unless otherwise specified in my note.
[2021-05-11] MEDS: Potassium Chloride 20 MEQ Tab.ER PO SCH ×2 (13:46→21:51)
[2021-05-11 18:38] LABS: POTASSIUM,K 2.1 mmol/L (3.5-5.1)
[2021-05-11] MEDS ORDERED: Spironolactone 25 MG Tab PO ONE (18:48)
[2021-05-11] MEDS ORDERED: Potassium Chloride Riders 20 MEQ in Premix Bag 1 BAG IV ONE (18:53)
[2021-05-11] MEDS ORDERED: Magnesium Oxide 400 MG Tab PO ONE (19:00)
[2021-05-11] MEDS: Potassium Chloride Riders 20 MEQ in Premix Bag 1 BAG IV SCH ×2 (20:22→23:31)
[2021-05-12] MEDS: Potassium Chloride Riders 20 MEQ in Premix Bag 1 BAG IV SCH (02:54)
[2021-05-12] MEDS: Sodium Chloride 0.9% 1,000 ML IV SCH ×2 (02:55→11:05)
[2021-05-12] MEDS: Potassium Chloride 20 MEQ Tab.ER PO SCH ×2 (05:55→14:01)
[2021-05-12 06:34] LABS: POTASSIUM,K 2.7 mmol/L (3.5-5.1)
[2021-05-12] MEDS ORDERED: Spironolactone 25 MG Tab PO ONE (08:10)
[2021-05-12] MEDS ORDERED: Potassium Chloride Riders 40 MEQ in Premix Bag 1 BAG IV ONE (08:13)
[2021-05-12] MEDS ORDERED: Magnesium Oxide 400 MG Tab PO SCH (09:00)
--- NOTE | 2021-05-12 11:48 | PCM.DCSUM1 ---
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 Patient condition is managed and followed in [place] by his provider. Patient was diagnosed in his mid to late 20s. Patient has been in [place] since January. Patient's medications include potassium chloride 60 mEq TID and amiloride 40 mg daily. Patient has been noncompliant with his medications for the last 1 year. Patient has had episodes of hyperkalemia in the past states he begins to experience muscle weakness in his legs which he had for the past few days prior to admission. He did call his provider for prescription but was told to ER for evaluation. Patient understands that the symptoms start when his potassium becomes between 1-2. Patient denied chest pain, palpitations, irregular heartbeat, shortness of breath, dyspnea on exertion, headaches, dizziness, loss of consciousness. Patient had COVID last month, did not require hospitalization. Patient is not vaccinated for Covid. In the ED patient presented with bilateral lower extremity muscle weakness and difficulty ambulating. His potassium was 1.9. Magnesium was 1.3. Patient received IV and oral potassium repletion and magnesium. Patient was admitted to the hospital where he received his home potassium chloride p.o. 60 mEq 3 times daily as well as IV potassium repletion. Patient's electrolytes were repleted and within normal limits. Patient's muscle weakness improved and patient regained his strength back to baseline. Patient was cleared by physical therapy. Patient was counseled on the importance of medication compliance and w as given a prescription for amiloride, potassium and magnesium for 1 month. - Discharge Data Discharge Date: 05/12/21 Discharge Disposition: Home, Self-Care 01 Condition: Stable - Referral to Home Health Primary Care Physician: PCP None - Discharge Diagnosis/Problem(s) (1) Hypokalemia SNOMED Code(s): 20483901 ICD Code: E87.6 - HYPOKALEMIA Status: Acute (2) Hypokalemic periodic paralysis SNOMED Code(s): 43328895 ICD Code: G72.3 - PERIODIC PARALYSIS Status: Acute - Patient Summary/Data Consults: Consultations 05/11/21 09:37 Consult to Physical Therapy [PT Evaluation and Treatment] [CONS] Routine - Patient Instructions Diet: Usual Diet as Tolerated Activity: As Tolerated Notify Provider of: Fever, Increased Pain Other/Special Instructions: You were admitted for low potassium and received potassium repletion through IV and by mouth. You are also given magnesium. It is very important that you stay compliant with your medications so you do not have a severe drop in your potassium again. Your prescriptions have been refilled for 1 month. Please follow-up in the primary care clinic for refills. If you experience chest pain, palpitations, dizziness, loss of consciousness, muscle weakness, difficulty walking please seek medical attention immediately. - Discharge Plan *PRESCRIPTION DRUG MONITORING PROGRAM REVIEWED*: Not Applicable *COPY OF PRESCRIPTION DRUG MONITORING REPORT IN PATIENT [place]: Not Applicable Prescriptions/Med Rec: Potassium Chloride [Klor-Con M20] 60 meq PO TID 30 Days tab.er Magnesium Oxide [Mag-Oxide] 600 mg PO DAILY 30 Days #90 tablet aMILoride [Midamor] 40 mg PO DAILY 30 Days #30 Home Medications: Home Meds Naproxen [EC-Naproxen] 500 mg PO Q12HR #20 tablet. 01/15/20 [Rx] Magnesium Oxide [Mag-Oxide] 600 mg PO DAILY 30 Days #90 tablet 05/12/21 [Rx] Potassium Chloride [Klor-Con M20] 60 meq PO TID 30 Days tab.er 05/12/21 [Rx] aMILoride [Midamor] 40 mg PO DAILY 30 Days #30 05/12/21 [Rx] Patient Handouts: Potassium Chloride Extended-Release Capsules, Amiloride Oral Tablets, Hypokalemia, Magnesium Salts tablets, extended-release Referrals: Tamara Lewis MD [Resident] - 05/23/21 2:00 pm - Discharge Summary/Plan Comment DC Time >30 min.: Yes Total # of Minutes for Discharge Time: 45 - General Info Admission Dx/Problem (Free Text: Admission Diagnosis/Problem Admission Diagnosis/Problem Hypokalemia - Review of Systems General: Denies: Fever, Weakness, Fatigue, Chills HEENT: Denies: Visual Changes Pulmonary: Denies: Shortness of Breath, Pleuritic Chest Pain Cardiovascular: Denies: Chest Pain, Palpitations Gastrointestinal: Denies: Abdominal Pain, Constipation, Decreased Appetite, Diarrhea, Melena, Nausea, Vomiting Genitourinary: Denies: Dysuria, Frequency Musculoskeletal: Denies: Neck Pain, Leg Pain, Foot Pain, Joint Swelling Skin: Denies: Rash Neurological: Denies: Confusion, Dizziness, Headache, Numbness, Paresthesia, Seizure, Tingling, Tremors, Difficulty Walking, Weakness - Patient Data Vitals - Most Recent: Last Vital Signs Temp 97.2 F 05/12/21 04:00 Pulse 68 05/12/21 04:00 Resp 17 05/12/21 04:00 BP 103/58 L 05/12/21 04:00 Pulse Ox 97 05/12/21 04:00 Weight - Most Recent: 90.251 kg I&O - Last 24 hours: Intake & Output 05/11/21 05/12/21 05/12/21 22:59 06:59 14:59 Intake Total 1811 1650 Output Total 1750 2300 Balance 61 -650 Lab Results - Last 24 hrs: Laboratory Results - last 24 hr 05/11/21 05/12/21 05/12/21 Range/Units 18:10 05:45 05:45 WBC 12.24 H (4.0-11.0) K/uL RBC 4.31 L (4.50-5.90) M/uL Hgb 13.1 (13.0-17.0) g/dL Hct 36.9 L (38.0-50.0) % MCV 85.6 (80.0-98.0) fL MCH 30.4 (27.0-32.0) pg MCHC 35.5 (31.0-37.0) g/dL RDW Std Deviation 42.0 (28.0-62.0) fl RDW Coeff of Benson 14 (11.0-15.0) % Plt Count 360 (150-400) K/uL MPV 10.50 (7.40-12.00) fL Neut % (Auto) 71.7 (48.0-80.0) % Lymph % (Auto) 16.7 (16.0-40.0) % Luce % (Auto) 7.9 (0.0-15.0) % Eos % (Auto) 3.6 (0.0-7.0) % Baso % (Auto) 0.1 (0.0-1.5) % Neut # (Auto) 8.8 H (1.4-5.7) K/uL Lymph # (Auto) 2.1 (0.6-2.4) K/uL Luce # (Auto) 1.0 H (0.0-0.8) K/uL Eos # (Auto) 0.4 (0.0-0.7) K/uL Baso # (Auto) 0.0 (0.0-0.1) K/uL Nucleated RBC % 0.0 /100WBC Nucleated RBCs # 0 K/uL Potassium 2.1 L* 2.7 L (3.5-5.1) mmol/L Magnesium 2.2 2.0 (1.8-2.4) mg/dL Med Orders - Current: Current Medications Albuterol/Ipratropium (Albuterol/Ipratropium 3.0-0.5 Mg/3 Ml Neb Soln) 3 ml NEB Q4HRRT PRN PRN Reason: Shortness of Breath Sodium Chloride (Normal Saline) 1,000 mls @ 125 mls/hr IV ASDIRECTED [facility] Last Admin: 05/12/21 11:05 Dose: 125 mls/hr Documented by: Potassium Chloride 40 meq/ (Premix) 100 mls @ 25 mls/hr IV ONETIME ONE Stop: 05/12/21 12:12 Last Admin: 05/12/21 09:18 Dose: 25 mls/hr Documented by: Magnesium Oxide (Magnesium Oxide 400 Mg Tab) 800 mg PO BID [facility] Stop: 05/12/21 15:00 Last Admin: 05/12/21 09:18 Dose: 800 mg Documented by: Ondansetron HCl (Ondansetron 4 Mg/2 Ml Sdv) 4 mg IVPUSH Q4H PRN PRN Reason: Nausea Potassium Chloride (Potassium Chloride 20 Meq Tab.Er) 60 meq PO TID [facility] Last Admin: 05/12/21 05:55 Dose: 60 meq Documented by: Discontinued Medications Potassium Chloride 20 meq/ (Premix) 50 mls @ 25 mls/hr IV ONETIME ONE Stop: 05/10/21 20:07 Last Admin: 05/10/21 19:00 Dose: Not Given Documented by: Potassium Chloride 40 meq/ (Premix) 100 mls @ 25 mls/hr IV ONETIME ONE Stop: 05/10/21 22:55 Last Admin: 05/10/21 19:30 Dose: 25 mls/hr Documented by: Magnesium Sulfate 2 gm/ Premix 50 mls @ 50 mls/hr IV ONETIME ONE Stop: 05/10/21 19:55 Last Admin: 05/10/21 19:15 Dose: 50 mls/hr Documented by: Magnesium Sulfate 2 gm/ Premix 50 mls @ 12.5 mls/hr IV ONETIME ONE Stop: 05/11/21 04:44 Last Admin: 05/11/21 01:05 Dose: 12.5 mls/hr Documented by: Potassium Chloride 40 meq/ (Premix) 100 mls @ 25 mls/hr IV ONETIME ONE Stop: 05/11/21 07:49 Last Admin: 05/11/21 04:44 Dose: 25 mls/hr Documented by: Magnesium Sulfate 2 gm/ Premix 50 mls @ 12.5 mls/hr IV ONETIME ONE Stop: 05/11/21 10:59 Last Admin: 05/11/21 10:15 Dose: Not Given Documented by: Potassium Chloride 40 meq/ (Premix) 100 mls @ 25 mls/hr IV ONETIME ONE Stop: 05/11/21 14:59 Potassium Chloride 40 meq/ (Premix) 100 mls @ 25 mls/hr IV ONETIME ONE Stop: 05/11/21 15:59 Last Admin: 05/11/21 12:05 Dose: 25 mls/hr Documented by: Potassium Chloride 40 meq/ (Premix) 100 mls @ 25 mls/hr IV ONETIME ONE Stop: 05/11/21 22:43 Last Admin: 05/11/21 21:24 Dose: Not Given Documented by: Potassium Chloride 20 meq/ (Premix) 50 mls @ 25 mls/hr IV ONETIME ONE Stop: 05/11/21 20:52 Last Admin: 05/11/21 21:26 Dose: Not Given Documented by: Potassium Chloride 20 meq/ (Premix) 50 mls @ 25 mls/hr IV Q2H MATTHEW Stop: 05/12/21 01:14 Last Admin: 05/12/21 02:54 Dose: 15 mls/hr Documented by: Magnesium Oxide (Magnesium Oxide 400 Mg Tab) 800 mg PO ONETIME ONE Stop: 05/11/21 19:01 Last Admin: 05/11/21 19:25 Dose: 800 mg Documented by: Amiloride 5 Mg (Tablet) 8 each PO DAILY MATTHEW Potassium Chloride (Potassium Chloride 10% 20 Meq/15 Ml Soln 30 Ml Ud Cup) 40 meq PO ONETIME ONE Stop: 05/10/21 19:01 Last Admin: 05/10/21 19:14 Dose: 40 meq Documented by: Potassium Chloride (Potassium Chloride 20 Meq Tab.Er) 40 meq PO ONETIME ONE Stop: 05/10/21 22:46 Last Admin: 05/10/21 23:08 Dose: 40 meq Documented by: Potassium Chloride (Potassium Chloride 20 Meq Tab.Er) 40 meq PO ONETIME ONE Stop: 05/11/21 03:19 Last Admin: 05/11/21 04:14 Dose: 40 meq Documented by: Potassium Chloride (Potassium Chloride 20 Meq Tab.Er) 60 meq PO ONETIME ONE Stop: 05/11/21 08:32 Last Admin: 05/11/21 09:44 Dose: 60 meq Documented by: Spironolactone (Spironolactone 25 Mg Tab) 50 mg PO ONETIME ONE Stop: 05/10/21 19:18 Last Admin: 05/10/21 19:29 Dose: 50 mg Documented by: Spironolactone (Spironolactone 25 Mg Tab) 25 mg PO ONETIME ONE Stop: 05/11/21 18:49 Last Admin: 05/11/21 19:25 Dose: 25 mg Documented by: Spironolactone (Spironolactone 25 Mg Tab) 25 mg PO ONETIME ONE Stop: 05/12/21 08:11 Last Admin: 05/12/21 09:18 Dose: 25 mg Documented by: - Exam General: Reports: Alert, Oriented HEENT: Reports: Pupils Equal, Pupils Reactive, Mucous Membr. Moist/Aline Neck: Reports: Supple, Trachea Midline Lungs: Reports: Clear to Auscultation, Normal Respiratory Effort Cardiovascular: Reports: Regular Rate, Regular Rhythm GI/Abdominal Exam: Normal Bowel Sounds, Soft, Non-Tender Rectal (Males) Exam: Normal Rectal Tone Back Exam: Reports: Normal Inspection, Full Range of Motion Extremities: Normal Inspection, Normal Range of Motion, Non-Tender, No Pedal Edema, Normal Capillary Refill. No: Joint Swelling, Leg Pain, Limited Range of Motion Skin: Reports: Warm, Dry, Intact Neurological: Reports: Normal Gait, Normal Tone, Strength Equal Bilateral Psy/Mental Status: Reports: Alert, Normal Affect, Normal Mood <Michel Black - Last Filed: 05/13/21 14:15> Discharge Summary - Referral to Home Health Primary Care Physician: PCP None - Patient Summary/Data Consults: Consultations 05/11/21 09:37 Consult to Physical Therapy [PT Evaluation and Treatment] [CONS] Routine - Patient Data Vitals - Most Recent: Last Vital Signs Temp 36.8 C 05/12/21 12:00 Pulse 72 05/12/21 12:00 Resp 16 05/12/21 12:00 BP 102/66 05/12/21 12:00 Pulse Ox 96 05/12/21 12:00 Med Orders - Current: Current Medications Discontinued Medications Albuterol/Ipratropium (Albuterol/Ipratropium 3.0-0.5 Mg/3 Ml Neb Soln) 3 ml NEB Q4HRRT PRN PRN Reason: Shortness of Breath Potassium Chloride 20 meq/ (Premix) 50 mls @ 25 mls/hr IV ONETIME ONE Stop: 05/10/21 20:07 Last Admin: 05/10/21 19:00 Dose: Not Given Documented by: Potassium Chloride 40 meq/ (Premix) 100 mls @ 25 mls/hr IV ONETIME ONE Stop: 05/10/21 22:55 Last Admin: 05/10/21 19:30 Dose: 25 mls/hr Documented by: Magnesium Sulfate 2 gm/ Premix 50 mls @ 50 mls/hr IV ONETIME ONE Stop: 05/10/21 19:55 Last Admin: 05/10/21 19:15 Dose: 50 mls/hr Documented by: Sodium Chloride (Normal Saline) 1,000 mls @ 125 mls/hr IV [facility] Last Admin: 05/12/21 11:05 Dose: 125 mls/hr Documented by: Magnesium Sulfate 2 gm/ Premix 50 mls @ 12.5 mls/hr IV ONETIME ONE Stop: 05/11/21 04:44 Last Admin: 05/11/21 01:05 Dose: 12.5 mls/hr Documented by: Potassium Chloride 40 meq/ (Premix) 100 mls @ 25 mls/hr IV ONETIME ONE Stop: 05/11/21 07:49 Last Admin: 05/11/21 04:44 Dose: 25 mls/hr Documented by: Magnesium Sulfate 2 gm/ Premix 50 mls @ 12.5 mls/hr IV ONETIME ONE Stop: 05/11/21 10:59 Last Admin: 05/11/21 10:15 Dose: Not Given Documented by: Potassium Chloride 40 meq/ (Premix) 100 mls @ 25 mls/hr IV ONETIME ONE Stop: 05/11/21 14:59 Potassium Chloride 40 meq/ (Premix) 100 mls @ 25 mls/hr IV ONETIME ONE Stop: 05/11/21 15:59 Last Admin: 05/11/21 12:05 Dose: 25 mls/hr Documented by: Potassium Chloride 40 meq/ (Premix) 100 mls @ 25 mls/hr IV ONETIME ONE Stop: 05/11/21 22:43 Last Admin: 05/11/21 21:24 Dose: Not Given Documented by: Potassium Chloride 20 meq/ (Premix) 50 mls @ 25 mls/hr IV ONETIME ONE Stop: 05/11/21 20:52 Last Admin: 05/11/21 21:26 Dose: Not Given Documented by: Potassium Chloride 20 meq/ (Premix) 50 mls @ 25 mls/hr IV Q2H [facility] Stop: 05/12/21 01:14 Last Admin: 05/12/21 02:54 Dose: 15 mls/hr Documented by: Potassium Chloride 40 meq/ (Premix) 100 mls @ 25 mls/hr IV ONETIME ONE Stop: 05/12/21 12:12 Last Admin: 05/12/21 09:18 Dose: 25 mls/hr Documented by: Potassium Chloride/Sodium Chloride (Normal Saline With 40 Meq Kcl) 1,000 mls @ 150 mls/hr IV ASDIRECTED [facility] Stop: 05/12/21 20:24 Last Admin: 05/12/21 14:21 Dose: 150 mls/hr Documented by: Magnesium Oxide (Magnesium Oxide 400 Mg Tab) 800 mg PO ONETIME ONE Stop: 05/11/21 19:01 Last Admin: 05/11/21 19:25 Dose: 800 mg Documented by: Magnesium Oxide (Magnesium Oxide 400 Mg Tab) 800 mg PO BID [facility] Stop: 05/12/21 15:00 Last Admin: 05/12/21 09:18 Dose: 800 mg Documented by: Ondansetron HCl (Ondansetron 4 Mg/2 Ml Sdv) 4 mg IVPUSH Q4H PRN PRN Reason: Nausea Amiloride 5 Mg (Tablet) 8 each PO DAILY [facility] Potassium Chloride (Potassium Chloride 10% 20 Meq/15 Ml Soln 30 Ml Ud Cup) 40 meq PO ONETIME ONE Stop: 05/10/21 19:01 Last Admin: 05/10/21 19:14 Dose: 40 meq Documented by: Potassium Chloride (Potassium Chloride 20 Meq Tab.Er) 40 meq PO ONETIME ONE Stop: 05/10/21 22:46 Last Admin: 05/10/21 23:08 Dose: 40 meq Documented by: Potassium Chloride (Potassium Chloride 20 Meq Tab.Er) 40 meq PO ONETIME ONE Stop: 05/11/21 03:19 Last Admin: 05/11/21 04:14 Dose: 40 meq Documented by: Potassium Chloride (Potassium Chloride 20 Meq Tab.Er) 60 meq PO ONETIME ONE Stop: 05/11/21 08:32 Last Admin: 05/11/21 09:44 Dose: 60 meq Documented by: Potassium Chloride (Potassium Chloride 20 Meq Tab.Er) 60 meq PO TID [facility] Last Admin: 05/12/21 14:01 Dose: 60 meq Documented by: Spironolactone (Spironolactone 25 Mg Tab) 50 mg PO ONETIME ONE Stop: 05/10/21 19:18 Last Admin: 05/10/21 19:29 Dose: 50 mg Documented by: Spironolactone (Spironolactone 25 Mg Tab) 25 mg PO ONETIME ONE Stop: 05/11/21 18:49 Last Admin: 05/11/21 19:25 Dose: 25 mg Documented by: Spironolactone (Spironolactone 25 Mg Tab) 25 mg PO ONETIME ONE Stop: 05/12/21 08:11 Last Admin: 05/12/21 09:18 Dose: 25 mg Documented by: - Free Text/Narrative Note: I have seen and examined the patient. I have discussed findings and treatment plan with the resident. I agree with the assessment and plan outlined in the following note.
[2021-05-12 12:23] LABS: POTASSIUM,K 3.1 mmol/L (3.5-5.1)
[2021-05-12] MEDS ORDERED: Sodium Chloride 0.9% with KCl 1,000 ML IV SCH (13:45)
== END 2021-05-12 13:53 | disposition home or self-care (01) ==
LOC: MW.ED 17:41 → MW.MS 05-11 00:51
PROVIDERS: ADMIT Student in an Organized Health Care Education/Training Program; ATTEND Student in an Organized Health Care Education/Training Program
DX: E87.6 Hypokalemia (principal); G72.3 Periodic paralysis; Z88.0 Allergy status to penicillin; Z88.1 Allergy status to other antibiotic agents; Z88.8 Allergy status to other drugs, medicaments and biological substances; F17.220 Nicotine dependence, chewing tobacco, uncomplicated; Z79.899 Other long term (current) drug therapy; Z87.891 Personal history of nicotine dependence
CPT/HCPCS: 36415; 80053; 83735; 84132; 85025; 96365; 96366; 96367; 97110; 97161; 99285; A9270; G0378; J3475; J3480; J7030